=== PATIENT | female | born 1950 | race Caucasian/White ===

== ENCOUNTER 2018-05-28 20:20 | Emergency (ER) | payer MEDICARE ==
[2018-05-28 21:14] LABS: ABS Basophils 0 10^3/ul (0-0.2); ABS Eosinophils 0 10^3/ul (0-0.6); ABS Lymphocytes 0.7 10^3/ul (1.0-4.8); ABS Monocytes 1.1 10^3/ul (0-0.8); ABS Neutrophils 8.9 10^3/ul (1.5-7.7); ABS Nucleated RBC 0 10^3/ul; Eosinophil % 0.2 % (0-6); Hematocrit 42 % (35-47); Hemoglobin 14.4 g/dl (12.0-16.0); Lymphocyte % 6.3 % (25-47); Mean Corpuscular HGB Conc 34 g/dl (31-36); Mean Corpuscular Hemoglobin 32 pg (27-31); Mean Corpuscular Volume 95 fL (80-97); Mean Platelet Volume 9.3 um3 (7.4-10.4); Nucleated Red Blood Cells % 0; Platelet Count 151 10^3/ul (150-450); Red Blood Count 4.45 10^6/ul (4.00-5.40); Red Cell Distribution Width 14 % (10.5-15); White Blood Count 10.8 10^3/ul (3.5-10.8)
[2018-05-28 21:23] LABS: Urine Appearance Cloudy; Urine Blood 3+ (Negative); Urine Color Amber; Urine Ketones 1+ (Negative); Urine Protein 3+(>=500 mg/dL) (Negative); Urine Red Blood Cell 3+(>10/hpf) (Absent); Urine Specific Gravity 1.017 (1.010-1.030); Urine Urobilinogen Negative (Negative); Urine White Blood Cell 2+(11-20/hpf) (Absent)
[2018-05-28 21:31] LABS: EGFR Non-African American 54.7 (>60)
[2018-05-28] MEDS ORDERED: Morphine VIAL* 4 MG/ML VIAL (1 ml vial) IV ONE (22:22)
[2018-05-28] MEDS ORDERED: NS 0.9% 1000 ML* 1,000 ML IV ONE (22:22)
[2018-05-28] MEDS ORDERED: Ondansetron ODT TAB* 4 MG PO ONE (22:22)
[2018-05-28] MEDS ORDERED: Ketorolac INJ* 30 MG/ML 1 ML VIAL IV PUSH ONE (22:31)
--- NOTE | 2018-05-28 22:36 | ED ---
GI/ HPI - HPI Summary HPI Summary: Patient is a 68-year-old female who presents emergency department for hematuria and right flank pain x 2 days. Pt. states she noticed yesterday her urine was dark and foul smelling. Pt. states she increased her water intake and drank cranberry juice. Today, she developed sharp right low back pain and noticed blood in her urine. She denies fever, vomiting. No history of kidney stones. Symptoms are moderate in severity. No current modifying factors. - History of Current Complaint Chief Complaint: EDUrogenitalProblems Time Seen by Provider: 05/28/18 22:13 Stated Complaint: RT FLANK PAIN Hx Obtained From: Patient Pain Intensity: 6 - Allergy/Home Medications Allergies/Adverse Reactions: Allergies Allergy/AdvReac Type Severity Reaction Status Date / Time No Known Allergies Allergy Verified 05/28/18 20:38 PMH/Surg Hx/FS Hx/Imm Hx Previously Healthy: Yes Infectious Disease History: No Infectious Disease History: Denies: Traveled Outside the [place] in Last 30 Days - Social History Alcohol Use: Occasionally Substance Use Type: Reports: None Smoking Status (MU): Never Smoked Tobacco Review of Systems Constitutional: Negative Eyes: Negative ENT: Negative Cardiovascular: Negative Respiratory: Negative Positive: Abdominal Pain, Nausea Positive: burning, dysuria, flank pain, hematuria All Other Systems Reviewed And Are Negative: Yes Physical Exam Triage Information Reviewed: Yes Vital Signs On Initial Exam: Initial Vitals Temp Pulse Resp BP Pulse Ox 99.5 F 86 16 136/68 98 05/28/18 20:34 05/28/18 20:34 05/28/18 20:34 05/28/18 20:34 05/28/18 20:34 Vital Signs Reviewed: Yes Appearance: Positive: Well-Appearing - Pt. lying in bed in NAD. Family member present. Skin: Positive: Warm, Dry Head/Face: Positive: Normal Head/Face Inspection Eyes: Positive: Normal Neck: Positive: Supple Abdomen Description: Positive: Nontender, Soft, CVA Tenderness (R) Neurological: Positive: Normal, CN Intact II-III Psychiatric: Positive: Affect/Mood Appropriate Diagnostics - Vital Signs Vital Signs Temp Pulse Resp BP Pulse Ox 05/28/18 20:34 99.5 F 86 16 136/68 98 - Laboratory Lab Results: Lab Results 06/27/18 06/27/18 06/27/18 Range/Units 21:02 21:05 21:05 WBC 10.8 (3.5-10.8) 10^3/ul RBC 4.45 (4.00-5.40) 10^6/ul Hgb 14.4 (12.0-16.0) g/dl Hct 42 (35-47) % MCV 95 (80-97) fL MCH 32 H (27-31) pg MCHC 34 (31-36) g/dl RDW 14 (10.5-15) % Plt Count 151 (150-450) 10^3/ul MPV 9.3 (7.4-10.4) um3 Neut % (Auto) 83.1 H (38-83) % Lymph % (Auto) 6.3 L (25-47) % Roosevelt % (Auto) 10.1 H (0-7) % Eos % (Auto) 0.2 (0-6) % Baso % (Auto) 0.3 (0-2) % Absolute Neuts (auto) 8.9 H (1.5-7.7) 10^3/ul Absolute Lymphs (auto) 0.7 L (1.0-4.8) 10^3/ul Absolute Monos (auto) 1.1 H (0-0.8) 10^3/ul Absolute Eos (auto) 0 (0-0.6) 10^3/ul Absolute Basos (auto) 0 (0-0.2) 10^3/ul Absolute Nucleated RBC 0 10^3/ul Nucleated RBC % 0 Sodium 142 (135-145) mmol/L Potassium 3.4 L (3.5-5.0) mmol/L Chloride 105 (101-111) mmol/L Carbon Dioxide 28 (22-32) mmol/L Anion Gap 9 (2-11) mmol/L BUN 15 (6-24) mg/dL Creatinine 1.01 H (0.51-0.95) mg/dL Est GFR ( Amer) 66.2 (>60) Est GFR (Non-Af Amer) 54.7 (>60) BUN/Creatinine Ratio 14.9 (8-20) Glucose 126 H (70-100) mg/dL Calcium 9.2 (8.6-10.3) mg/dL Total Bilirubin 0.70 (0.2-1.0) mg/dL AST 24 (13-39) U/L ALT 16 (7-52) U/L Alkaline Phosphatase 69 (34-104) U/L Total Protein 6.5 (6.4-8.9) g/dL Albumin 4.5 (3.2-5.2) g/dL Globulin 2.0 (2-4) g/dL Albumin/Globulin Ratio 2.3 (1-3) Urine Color Faby Urine Appearance Cloudy Urine pH 6.0 (5-9) Ur Specific Bevier 1.017 (1.010-1.030) Urine Protein 3+(>=500 mg/dl) A (Negative) Urine Ketones 1+ A (Negative) Urine Blood 3+ A (Negative) Urine Nitrate Negative (Negative) Urine Bilirubin Negative (Negative) Urine Urobilinogen Negative (Negative) Ur Leukocyte Esterase 3+ A (Negative) Urine WBC (Auto) 2+(11-20/hpf) A (Absent) Urine RBC (Auto) 3+(>10/hpf) A (Absent) Urine Bacteria Absent (Absent) Urine Glucose Negative (Negative) Urine Ascorbic Acid * A (Negative) Result Diagrams: 05/28/18 21:05 05/28/18 21:05 Lab Statement: Any lab studies that have been ordered have been reviewed, and results considered in the medical decision making process. GIGU Course/Dx - Course Course Of Treatment: Pt. presenting to the ER for right flank pain and urinary symptoms. She is afebrile and well appearing. Suspect kidney stone. Pt. was started on IV fluids and given iv morphine and toradol. CBC and CMP are unremarkable. 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 On re-exam pt.'s pain has greatly improved and she is resting comfortably. Case was discussed with Dr. Mitchell who recommends a dose of IV rocephin and treating pt. outpt. Results and plan discussed with pt. and . Given INFO for urology for f.u. Rx sent to pharmacy. Advised to return to ER for fever, vomiting, increased pain. - Diagnoses Differential Diagnoses - Female: Renal Calculi, Renal Colic, Sepsis, Urinary Tract Infection Provider Diagnoses: Urolithiasis Discharge - Sign-Out/Discharge Documenting (check all that apply): Discharge/Admit/Transfer - Discharge Plan Condition: Good Disposition: HOME Prescriptions: Cephalexin CAP* [Keflex CAP*] 500 mg PO BID #20 cap Ondansetron HCl [Zofran] 4 mg PO Q6H #12 tablet oxyCODONE/Acetamin 5/325 MG* [Percocet 5/325 TAB*] 1 tab PO Q6H PRN 3 Days #12 tab MDD 4tablets PRN Reason: Pain Tamsulosin CAP* [Flomax CAP*] 0.4 mg PO DAILY #5 cap Patient Education Materials: Kidney Stones (ED) Referrals: Ryan Patel MD [Primary Care Provider] - Maciel Jessica MD [Medical Doctor] - Additional Instructions: Schedule a follow up appointment with urology if symptoms continue Take medication as directed Increase fluids Strain urine Return to ER for increased pain, fever, vomiting or if concerned - Billing Disposition and Condition Condition: GOOD Disposition: Home
[2018-05-28] MEDS ORDERED: cefTRIAXone(*) 1 GM in NS 0.9% 50 ML* 50 ML IVPB ONE (23:32)
[2018-05-29] MEDS ORDERED: oxyCODONE/Acetamin 5/325 MG* TAB PO ONE
[2018-05-29 00:33] VITALS: BP 113/65
--- NOTE | 2018-05-29 08:00 | RAD ---
INDICATION: Right flank pain COMPARISON: None TECHNIQUE: Noncontrast axial source images were acquired from the level hemidiaphragms to the symphysis pubis as part of CT imaging for renal stone. Lung bases: The lung bases are clear. Liver: The liver is normal in size. Noncontrast imaging shows no evidence of a hepatic mass or ductal dilatation. Gallbladder: There are no calcified gallstones. There is no evidence of wall thickening or pericholecystic fluid.. Spleen: The spleen is normal in size. The noncontrast CT appearance is normal. Pancreas: Noncontrast imaging shows no pancreatic mass or ductal dilitation. Adrenal glands: No masses are identified. Kidneys/Bladder: There is mild fullness of the right renal collecting system and right ureter process with minimal right-sided perinephric stranding. There is no localized perinephric fluid collection. There are consultations along the course of the ureters which are likely phleboliths although distal right ureteral calculus is not excluded. There is no evidence of a renal mass on noncontrast imaging... Adenopathy: There is no evidence of intraperitoneal or retroperitoneal adenopathy. Evaluation is limited without oral contrast. Fluid collections: There are no free or localized fluid collections. Vessels: The aorta and iliac vessels are normal in caliber. There are no significant atherosclerotic changes. The IVC appears normal Pelvic organs: The uterus and adnexa appear normal GI tract: Evaluation of the bowel is limited without oral contrast. The stomach, small bowel, and lower GI tract appear grossly normal. There are no obstructive findings. The appendix is visualized and appears normal. Soft tissues: No soft tissue abnormalities of the extraperitoneal abdomen or pelvis are identified. Osseous structures: There are no acute osseous findings. IMPRESSION: MILD FULLNESS OF THE RIGHT RENAL PELVIS AND RIGHT URETER WITH POSSIBLE DISTAL URETERAL CALCULUS VERSUS PHLEBOLITH. THE PATIENT MAY ALSO HAVE RECENTLY PASSED A STONE. CONSIDER FOLLOW-UP ULTRASONOGRAPHY TO ASSESS HYDRONEPHROSIS AND URETERAL JET. COMPARISON WITH URINALYSIS IS ALSO RECOMMENDED PYELONEPHRITIS COULD HAVE THIS APPEARANCE.
--- NOTE | 2018-05-31 06:40 | PN ---
Progress Note - Progress Note Date of Service: 05/28/18 Note: Urine culture grew Escherichia coli 100,000 Patient placed on Keflex prior to discharge Keflex is sensitive to organism Nothing further at this time Yanet Delong, PAC
== END 2018-05-29 00:31 | disposition home or self-care (01) ==
LOC: ED 20:20
DX: N13.2 Hydronephrosis with renal and ureteral calculous obstruction (principal); R31.9 Hematuria, unspecified
CPT/HCPCS: 36415; 74176; 80053; 81003; 81015; 85025; 87077; 87086; 87186; 96361; 96374; 96375; 99282; A9270-GY; J0696; J1885; J2270